=== PATIENT | male | born 1995 | race African-American/Black ===

== ENCOUNTER 2019-06-26 16:20 | Emergency (ER) | payer OTHER ==
[~2019-06-26] VITALS: Ht 177.8 cm; Wt 74.8 kg
--- NOTE | 2019-06-26 16:30 | NUR ---
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 on room air, breathing evenly and unlabored. ambulatory with steady gait. sitter at bedside. will continue to monitor accordingly.
--- NOTE | 2019-06-26 16:38 | NUR ---
security at bedside and wand the patient.
--- NOTE | 2019-06-26 16:38 | NUR ---
security at bedside for wanding. belongings placed in safe locker.
--- NOTE | 2019-06-26 16:46 | NUR ---
selvin collected and sent to lab
[2019-06-26] MEDS ORDERED: BUPROPION XL 150 MG TAB.ER.24 PO SCH (17:00)
[2019-06-26] MEDS ORDERED: ARIPIPRAZOLE 5 MG TABLET PO ONE (17:00)
[2019-06-26] MEDS ORDERED: ESCITALOPRAM OXALATE (10 MG) 10 MG TABLET PO ONE (17:00)
[2019-06-26] MEDS ORDERED: ESCITALOPRAM OXALATE (10 MG) 10 MG TABLET ONE (17:05)
[2019-06-26 17:07] LABS: BASOPHILS # (AUTO) 0.1 /CMM (0.0-0.2); BASOPHILS % (AUTO) 1.1 % (0.0-2.0); CALCIUM, SERUM 9.6 mg/dL (8.5-10.1); CARBON DIOXIDE 28 mmol/L (21-32); CHLORIDE 101 mmol/L (98-107); CREATININE 1.2 mg/dL (0.6-1.3); EOSINOPHILS % (AUTO) 1.3 % (0.0-6.0); GLUCOSE 85 mg/dL (74-106); HEMATOCRIT 42 % (39-51); HEMOGLOBIN 14.3 g/dL (13.5-17.5); LYMPHOCYTES # (AUTO) 1.9 /CMM (0.8-4.8); LYMPHOCYTES % (AUTO) 27.6 % (20.0-44.0); MEAN CORPUSCULAR HGB CONC 34 g/dl (31.0-36.0); MEAN CORPUSCULAR VOLUME 90 fL (80-96); MONOCYTES # (AUTO) 0.6 /CMM (0.1-1.30); MONOCYTES % (AUTO) 8.8 % (2.0-12.0); NEUTROPHILS # (AUTO) 4.1 /CMM (1.8-8.9); NEUTROPHILS % (AUTO) 61.2 % (43.0-81.0); PLATELET COUNT (AUTO) 290 /CMM (150-450); POTASSIUM 3.7 mmol/L (3.5-5.1); RED BLOOD CELL COUNT(AUTO) 4.68 MIL/uL (4.5-6.0); SODIUM SERUM 141 mmol/L (136-145); UREA NITROGEN, BLOOD 24 mg/dL (7-18); WHITE BLOOD COUNT (AUTO) 6.8 K/uL (4.3-11.0)
[2019-06-26 17:08] LABS: APPEARANCE,URINE Clear (CLEAR); BILIRUBIN,URINE SMALL (NEGATIVE); BLOOD, URINE Negative Ery/uL (NEGATIVE); COLOR,URINE Yellow (YELLOW); KETONES,URINE 15 (NEGATIVE); LEUKOCYTE ESTERASE ,URINE Negative (NEGATIVE); NITRITE, URINE Negative (NEGATIVE); PROTEIN,URINE 30 mg/dl (NEGATIVE); UGLUCOSE Negative (NEGATIVE); UROBILINOGEN,URINE 0.2 EU/dL (0.2)
[2019-06-26 17:13] LABS: ALANINE AMINOTRANSFERASE 25 U/L (12-78); ALBUMIN 4.6 g/dL (3.4-5.0); ALCOHOL, BLOOD < 3 mg/dL (0-0); ALKALINE PHOSPHATASE 57 U/L (46-116); ASPARTATE AMINOTRANSFERASE 43 U/L (15-37); BILIRUBIN,DIRECT 0.2 mg/dL (0.0-0.2); BILIRUBIN,TOTAL 0.9 mg/dL (0.2-1.0); TOTAL PROTEIN, SERUM 8.7 g/dL (6.4-8.2)
[2019-06-26 17:15] LABS: ACETAMINOPHEN < 2 ug/ml (10-30); SALICYLATE 0.9 mg/dL (2.8-20.0)
[2019-06-26 17:19] LABS: RBC,URINE NONE SEEN /HPF (0-2); WBC,URINE NONE SEEN /HPF (0-3)
[2019-06-26 17:20] LABS: BACTERIA,URINE Rare /HPF (None Seen); SQUAMOUS EPITHELIAL CELL,UR Few /HPF (None Seen)
--- NOTE | 2019-06-26 18:19 | NUR ---
VERBALIZED HE IS STILL FEELING SUICIDAL, "FEELING A LITTLE SUICIDALI WANNA SLICE MY ARTERY" WHILE POINTING TO HIS NECK WITH RIGHT INDEX FINGER. DR MEAD INFORMED AND [facility] CALLED FOR EVAL Addendum: 06/26/19 at 1823 by JAQUELIN VERBALIZED HE IS STILL FEELING SUICIDAL, "FEELING A LITTLE SUICIDAL, WANNA SLICE MY ARTERY" WHILE POINTING TO HIS NECK WITH RIGHT INDEX FINGER. DR MEAD INFORMED AND [facility] CALLED FOR EVAL
[2019-06-27] MEDS ORDERED: LORAZEPAM 1 MG TABLET ONE (01:48)
[2019-06-27] MEDS ORDERED: LORAZEPAM 1 MG TABLET PO ONE (02:00)
--- NOTE | 2019-06-27 02:57 | NUR ---
Patient accepted to [facility] by Dr Robledo. # for report [phone]
--- NOTE | 2019-06-27 03:01 | NUR ---
Allyson called for transport ETA [id number] Trip:[id number]
--- NOTE | 2019-06-27 07:34 | NUR ---
Pt states that he is not suicidal, denies homicidal ideations. Patient states that he would like to be discharged to his mothers home. Pt ok to be discharged per dr Burton. Patient given written and verbal discharge instructions. Patient verbalizes understanding of instructions. Patient is ambulatory with steady gait. Refuses offer of senior care placement. Patient given list of available shelters in surrounding area.
[2019-06-27 07:35] VITALS: BP 121/79
== END 2019-06-27 07:36 | disposition home or self-care (01) ==
LOC: ER 16:20
DX: R45.851 Suicidal ideations (principal); F19.10 Other psychoactive substance abuse, uncomplicated; F43.10 Post-traumatic stress disorder, unspecified; E03.9 Hypothyroidism, unspecified
CPT/HCPCS: 36415; 80048; 80076; 80305; 80307; 80329; 81001; 85025; 99284; G0480; 81000-TC